=== PATIENT | female | born 1965 | race Caucasian/White ===

== ENCOUNTER 2024-07-25 10:21 | Emergency (ER) | payer OTHER, SELFPAY ==
[2024-07-25 10:24] VITALS: BP 107/71
[2024-07-25 11:41] VITALS: BMI 34.5
[2024-07-25 11:42] VITALS: BP 114/71
--- NOTE | 2024-07-25 11:45 | ED.GENMED ---
History of Present Illness
<Mandi Ng MD, Resident - Last Filed: 07/25/24 14:28>
General
Chief Complaint: Abdominal Symptoms
Source: patient
Exam Limitations: none
Time Seen by Provider: 07/25/24 11:38
History of Present Illness
History of Present Illness:
58-year-old female with remote history of ovarian cancer who presents to the ED with intermittent diarrhea and vomiting x2 days. Liquid stool every hour. Diarrhea and vomiting began 2 days ago a few hours after dinner with abdominal pain beginning
the day after. Dinner was homemade pasta with cheese steak from a restaurant. While dinner was shared with family, no on else had abdominal symptoms after.
Reports poor oral intake since symptoms again and headache. Denies recent antibiotic exposure, recent travel, fever/chills/sweats, chest pain, palpitations, difficulty swallowing, urinary symptoms, or blood in stool. Has never had a colonoscopy.
Past History
<Mandi Ng MD, Resident - Last Filed: 07/25/24 14:28>
Past History
ED Past Surgical History: Gynecological (oophorectomy, hysterectomy)
Social History
Tobacco: Smoker (0.5 pk a day)
Alcohol: None
Drug: None
Personal:
Living: with family
Family History
Family History: Cancer (ovarian cancer)
Review of Systems
<Mandi Ng MD, Resident - Last Filed: 07/25/24 14:28>
Review of Systems
Constitutional: Denies fever, night sweats or chills
Respiratory: Denies cough or trouble breathing
Cardiac: Denies chest pain, diaphoresis or palpitations
ABD/GI: Reports abdominal pain, nausea and diarrhea; Denies bloody stools or black stools
: Reports no symptoms; Denies dysuria, frequency, difficulty voiding, urgency or bleeding
Phy Exam
<Mandi Ng MD, Resident - Last Filed: 07/25/24 14:28>
Physical Exam
Physical Exam:
General: Appears uncomfortable
Heart: RRR, no murmurs or rubs
lung: Clear to auscultation bilaterally, no wheezing, rales, rhonchi or respiratory distress
Abd: Soft, nontender, nondistended, Hyperactive bowel sounds in all quadrants, mild epigastric tenderness. No rebound or guarding. No CVA tenderness
: no suprapubic tenderness
Course
<Mandi Ng MD, Resident - Last Filed: 07/25/24 14:28>
Orders/Labs/Results
Orders:
Orders
07/25/24 11:42
Electrocardiogram (*1) Urgent
Reason for Study: Abdominal Pain
EKG- Treatment ONCE
07/25/24 11:43
Complete Blood Count/With Diff Urgent
Comprehensive Metabolic Panel Urgent
Lipase Urgent
07/25/24 12:42
0.9% Sodium Chloride 500 ml [Nss] 500 ml IV BOLUS
Ondansetron Injectable [Zofran] 4 mg IV NOW STA
07/25/24 12:43
Add On- LAB Urgent
Tests Added?: magnesium
07/25/24 13:25
Acetaminophen [Tylenol] 500 mg PO NOW STA
07/25/24 14:09
STOOL [C difficile Antigen & Toxins] Urgent
ALYSE Source: Feces/Stool
Specimen Description:
Stool Culture Urgent
ALYSE Source: Feces/Stool
Specimen Description:
Abnormal Lab Results
07/25/24
11:43
Absolute Monos (auto) 1.6 H 10^3/uL
(0.1-0.6)
Lymphocytes % 16.6 L %
(20.5-51.1)
Monocytes % 17.2 H %
(1.7-9.3)
BUN 18 H mg/dl
(7-17)
Creatinine 1.3 H mg/dL
(0.6-1.0)
Glucose 100 H mg/dl
(70-99)
Calcium 10.6 H mg/dl
(8.4-10.2)
07/25/24 11:43
07/25/24 11:43
Vital Signs
Initial and Last Documented VS:
Initial Vital Signs
Temp Pulse Resp BP Pulse Ox
36.9 C 92 17 107/71 96
07/25/24 10:24 07/25/24 10:24 07/25/24 10:24 07/25/24 10:24 07/25/24 10:24
Last Documented Vital Signs
Temp Pulse Resp BP Pulse Ox
36.9 C 92 17 107/71 96
07/25/24 10:24 07/25/24 10:24 07/25/24 10:24 07/25/24 10:24 07/25/24 10:24
<Marcellus De Souza MD - Last Filed: 07/25/24 14:38>
Orders/Labs/Results
Orders:
Orders
07/25/24 11:42
Electrocardiogram (*1) Urgent
Reason for Study: Abdominal Pain
EKG- Treatment ONCE
07/25/24 11:43
Complete Blood Count/With Diff Urgent
Comprehensive Metabolic Panel Urgent
Lipase Urgent
07/25/24 12:42
0.9% Sodium Chloride 500 ml [Nss] 500 ml IV BOLUS
Ondansetron Injectable [Zofran] 4 mg IV NOW STA
07/25/24 12:43
Add On- LAB Urgent
Tests Added?: magnesium
07/25/24 13:25
Acetaminophen [Tylenol] 500 mg PO NOW STA
07/25/24 14:09
STOOL [C difficile Antigen & Toxins] Urgent
ALYSE Source: Feces/Stool
Specimen Description:
Stool Culture Urgent
ALYSE Source: Feces/Stool
Specimen Description:
Abnormal Lab Results
07/25/24
11:43
Absolute Monos (auto) 1.6 H 10^3/uL
(0.1-0.6)
Lymphocytes % 16.6 L %
(20.5-51.1)
Monocytes % 17.2 H %
(1.7-9.3)
BUN 18 H mg/dl
(7-17)
Creatinine 1.3 H mg/dL
(0.6-1.0)
Glucose 100 H mg/dl
(70-99)
Calcium 10.6 H mg/dl
(8.4-10.2)
07/25/24 11:43
07/25/24 11:43
Vital Signs
Initial and Last Documented VS:
Initial Vital Signs
Temp Pulse Resp BP Pulse Ox
36.9 C 92 17 107/71 96
07/25/24 10:24 07/25/24 10:24 07/25/24 10:24 07/25/24 10:24 07/25/24 10:24
Last Documented Vital Signs
Temp Pulse Resp BP Pulse Ox
36.9 C 92 17 107/71 96
07/25/24 10:24 07/25/24 10:24 07/25/24 10:24 07/25/24 10:24 07/25/24 10:24
<Mandi Ng MD, Resident - Last Filed: 07/25/24 14:28>
MDM/Problems Addressed
Differential Diagnosis Includes:
Gastroenteritis, c-diff colitis, parasitosis, constipation
MDM/Problems Addressed:
Presentation is suggestive of gastroenteritis, recent contact with grandchildren who also have GI illness. Unlikely C. diff colitis given absence of risk factors. No recent travel or sick contacts. Relatively benign abdominal exam. Abdominal imaging
not indicated at this time. Lipase is negative for pancreatitis and vitals remain stable. Will give 500ml bolus NS, zofran for nausea, and check magnesium. Will reevaluate shortly.
<Mandi Ng MD, Resident - Last Filed: 07/25/24 14:28>
*Critical Care Note
Total Time (30-74mins, 75-104mins- exclusive of procedures): Not Applicable
ED Attending Note
<Mandi Ng MD, Resident - Last Filed: 07/25/24 14:28>
-
Portions of this chart may have been created with voice recognition software.� Occasional wrong word or��sound alike� substitutions may have occurred due to the inherent limitations of voice recognition software.
<Marcellus De Souza MD - Last Filed: 07/25/24 14:38>
ED Attending Note
Patient seen and examined by attending physician: Yes
I performed a history and physical exam of patient and discussed management with resident, I reviewed resident's note and agree with documented findings and plan of care.: Yes
ED Attending Note:
I have seen and evaluated the patient with a [id number] encounter. I have spoken to the resident and involved in the medical history, the physical exam, medical decision making.
Evaluation and management service: agree unless noted differently below.
Results interpretation: agree unless noted differently below.
Focused HPI: 58-year-old female with history as documented presents to the emergency room for evaluation of nausea, vomiting, diarrhea. Patient reports that she had large bowel movement after dinner on Wednesday evening, had some mild lower abdominal
cramping and began vomiting Wednesday night. She says that Wednesday she vomited throughout the day and was having profuse diarrhea. Vomiting has improved but today continued to have diarrhea and so she came to the ER for evaluation. No blood in
diarrhea or vomitus. She says stools are completely liquid, greater than 10 episodes daily. She says that today she has mild headache. She denies any fevers or chills. She denies any significant abdominal pain�she says only has some mild
cramping with bowel movements. She denies any dysuria, hematuria, change in frequency. Denies any chest pain, shortness of breath, cough, URI symptoms. Prior abdominal hysterectomy, no other surgeries noted. Of note she says that she has been
around her grandchildren who have been dealing with diarrhea.
Physical exam: Awake alert not in distress. Vitals within normal limits. Mucous memories slightly dry. Abdomen soft, nondistended, nontender to deep palpation. Extremities are warm and well-perfused.
Medical Decision Makin-year-old female presents with diarrheal illness; had some nausea and vomiting as well which seems to have improved slightly. Today has mild headache�suspect likely dehydrated. Abdomen nontender not having significant
pain. Clinical picture is consistent with a gastroenteritis. Suspect likely viral gastroenteritis�grandchildren had recent diarrheal illness. We checked labs including a CBC and a CMP which were significant only for a creatinine of 1.3�no
baseline available for comparison but suspect likely mild DANIEL in the setting of dehydration. She was given IV fluids here as well as some Tylenol for headache and some Zofran. No indication for emergent abdominal imaging at this point in time with
reassuring vitals, labs and exam. No additional vomiting here. No clear indication for hospital admission, will discharge with Zofran and Imodium as needed, encouraged p.o. fluids and bland diet. All questions answered.
Discharge Plan
Departure
Patient Disposition: Home (Routine Discharge)
Date of Disposition: 07/25/24
Time of Disposition: 14:22
Patient with high blood pressure during this ER visit?: No
Discharge Problem:
Gastroenteritis, Dehydration, Diarrhea
Instructions: Dehydration, Adult (DC), Warren Diet, Diarrhea, Adult ED
Prescriptions:
New
ondansetron 4 mg tablet,disintegrating
4 mg PO TIDPRN PRN (Reason: nausea/vomiting) Qty: 14 0RF
No Action
venlafaxine 37.5 mg capsule,extended release 24hr
37.5 mg PO DAILY
omeprazole 40 mg capsule,delayed release(DR/EC)
40 mg PO DAILY
famotidine [Pepcid] 20 mg Tablet
20 mg PO DAILY PRN (Reason: heartburn)
prednisone 2.5 mg tablet
2.5 mg PO DAILY
diphenhydramine HCl [Benadryl] 25 mg Capsule
25 - 50 mg PO TID PRN (Reason: itching/hives/allergic reaction)
Patient Comments:
02/07/2023: Pt had an allergic reaction to Nitrofurantion (prescribed 01/22/23), Taking to help with itching & hives.
gabapentin 300 mg capsule
900 mg PO HS
acetaminophen [acetaminophen] 325 mg tablet
650 mg PO Q6HPRN PRN (Reason: mild pain) Qty: 14 0RF
oxycodone 5 mg tablet
5 mg PO Q4HPRN PRN (Reason: breakthrough/severe pain) Qty: 10 0RF
Paxlovid 300 mg (150 mg x 2)-100 mg tablets,dose pack
See Rx Instructions .ROUTE .COMPLEX Qty: 30 0RF
Rx Instructions:
take TWO 150 mg tablets of nirmatrelvir with ONE 100 mg tablet of ritonavir twice daily for 5 days
Referrals:
Prabha Avila DO [Family Provider] - Follow up in 2-3 days
Activity Restrictions/Additional Instructions:
Thank you for visiting the Emergency Department at [facility].
1. Please schedule a follow up appointment as directed. Call first thing tomorrow morning to make an appointment.
2. If indicated, please take your medications as instructed and indicated on discharge paperwork.
3. If any of your symptoms do not improve, or persist, or become more severe within 6-12 hours, please return to the emergency department for further care.
4. Please return to the emergency department if you develop a headache, neck pain/stiffness, fever greater than 100.4F, chest pain, shortness of breath, persistent nausea, vomiting, slurred speech, difficulty walking, numbness/tingling, weakness,
signs of infection or any other symptoms that are worrisome to you.
Please call [phone] if you have any questions.
Interventions
Interventions:
*Risk Screen - Suicide Last Done: 07/25/24 10:26
*General Assessment Last Done: 07/25/24 10:26
*Neglect/Abuse Screening Last Done: 07/25/24 10:26
ED- Fall Risk Assessment Last Done: 07/25/24 11:40
*ED COVID-19 Vaccine History Last Done: 07/25/24 11:40
ML-Bhxukt-Cyjkzcgkjl Assessment Last Done: 07/25/24 11:40
Discharge Date and Time
Print Language: LUXEMBOURGISH
[2024-07-25 11:56] LABS: % Basophils 0.2 % (0-2); % Eosinophils 0.6 % (0-6); % Immature Granulocytes 0.3 % (0-0.5); % Lymphocytes 16.6 % (20.5-51.1); % Monocytes 17.2 % (1.7-9.3); % Neutrophils 65.1 % (42.2-75.2); Absolute Eosinophils 0.1 10^3/uL (0-0.7); Absolute Lymphocytes 1.5 10^3/uL (1.2-3.4); Absolute Monocytes 1.6 10^3/uL (0.1-0.6); Absolute Neutrophils 5.9 10^3/uL (1.4-6.5); Hematocrit 43.9 % (37.0-47.0); Hemoglobin 14.8 g/dL (12.0-16.0); Mean Corp Hgb Conc. 33.7 g/dL (33.0-37.0); Mean Corpuscular Hgb 30.2 pg (27.0-31.0); Mean Corpuscular Volume 89.6 fL (81.0-99.0); Mean Platelet Volume 10.2 fL (7.4-10.4); Nucleated Red Blood Cells % 0 %; Platelet Count 285 10^3/uL (130-400); Red Cell Dist. Width 13.4 % (11.5-14.5)
[2024-07-25 12:00] VITALS: BP 117/69
[2024-07-25 12:12] LABS: ALT (SGPT) 20 U/L (0-35); AST (SGOT) 32 U/L (14-36); Albumin 4.6 g/dl (3.5-5.0); Alkaline Phosphatase 98 U/L (38-126); Blood Urea Nitrogen 18 mg/dl (7-17); Calcium 10.6 mg/dl (8.4-10.2); Carbon Dioxide 25 mmol/L (22-30); Chloride 102 mmol/L (98-107); Estimated Creatinine Clearance 56 ml/min; Glucose 100 mg/dl (70-99); Lipase 57 U/L (23-300); Potassium 4.4 mmol/L (3.5-5.1); Sodium 140 mmol/L (135-145); Total Bilirubin 0.6 mg/dl (0.2-1.3); Total Protein 6.8 g/dl (6.3-8.2); eGFR 47.08
[2024-07-25] MEDS: ZOFRAN 4 MG IV (12:50)
[2024-07-25] MEDS: NSS 500 IV (12:50)
[2024-07-25 13:00] VITALS: BP 119/73
[2024-07-25] MEDS: TYLENOL 500 MG PO (13:45)
[2024-07-25 14:00] VITALS: BP 116/71
== END 2024-07-25 15:10 | disposition home or self-care (01) ==
LOC: EMR 10:21
PROVIDERS: Physician Assistant; EMERGENCY PHYSICIAN Emergency Medicine; FAMILY PHYSICIAN Family Medicine
DX: K52.9 Noninfective gastroenteritis and colitis, unspecified (principal); E86.0 Dehydration; F17.200 Nicotine dependence, unspecified, uncomplicated
CPT/HCPCS: 99284; 96374; 96361; 80053; 83690; 83735; 85025; 93005

== ENCOUNTER 2025-05-04 09:41 | Emergency (ER) | payer OTHER, SELFPAY ==
[2025-05-04 09:44] VITALS: BP 114/59
--- NOTE | 2025-05-04 10:14 | ED.GENMED ---
History of Present Illness
General
Chief Complaint: Cold/Flu/URI Symptoms
Source: patient
Time Seen by Provider: 05/04/25 10:02
History of Present Illness
History of Present Illness:
59-year-old female with past medical history of previous ovarian cancer status post hysterectomy, GERD, remote history of pneumonia presenting to the emergency department for evaluation of cough and flulike symptoms that began Wednesday into Wednesday
including cough productive of a yellowish sputum, nausea, diminished p.o. intake, body aches and generalized fatigue. is also sick with similar symptoms. Patient went to urgent care on Wednesday where she was swabbed for COVID which was
negative and given a prescription for Augmentin and benzonatate however patient states no relief and she feels that the Augmentin is giving her GI upset. No fevers noted during this time, no abdominal pain, urinary symptoms, chest pain, shortness
of breath, palpitations or any other concerns. No medications taken today. Patient denies any recent travel.
Past History
Past History
ED Past Medical History: Cancer, Psychiatric and Other (Fibromyalgia)
ED Past Surgical History: Cholecystectomy and Gynecological (oophorectomy, hysterectomy)
Social History
Tobacco: Smoker (0.5 pk a day)
Alcohol: None
Drug: None
Personal:
Living: with family
Family History
Family History: Cancer (ovarian cancer)
Review of Systems
Review of Systems
All Other Systems: ROS reviewed and negative except as documented in HPI and ROS
Phy Exam
Physical Exam
Physical Exam:
GENERAL: Alert , in no apparent distress, ill-appearing but nontoxic
HEAD: Normocephalic atraumatic
EYE: conjunctiva clear
NECK: Supple
ENT: o/p clr, mmm.
CARDIAC: Regular rate and rhythm
LUNGS: Clear breath sounds bilaterally, no acute respiratory distress, no wheezes/rales/rhonchi
NEUROLOGICAL: Alert and oriented
SKIN: Warm and dry, skin intact.
MUSCULOSKELETAL: well perfused.
PSYCH: Normal and appropriate interaction.
Scores
Heart Failure Risk
Heart Failure Risk Score: Not Applicable
Heart Score for Chest Pain Patients
STEMI patient?: Not applicable
Withdrawal Assessment of Alcohol
Withdrawal Assessment Completed?: Not applicable
Course
Orders/Labs/Results
Orders:
Orders
05/04/25 10:14
0.9% Sodium Chloride 1000 ml [Nss] 1,000 ml IV BOLUS
CR Chest - 2 Views Urgent
Comment:
Reason For Exam: cough, flu like symptoms
05/04/25 10:20
Basic Metabolic Panel Urgent
Complete Blood Count/With Diff Urgent
Influenza A+B Rapid Molecular Urgent
ALYSE Source: Nasal Swab
Specimen Description:
Abnormal Lab Results
05/04/25
10:20
WBC 11.3 H 10^3/uL
(4.8-10.8)
MPV 10.7 H fL
(7.4-10.4)
Abs Immat Gran (auto) 0.1 H 10^3/uL
(0-0.05)
Absolute Neuts (auto) 7.4 H 10^3/uL
(1.4-6.5)
Absolute Monos (auto) 1.4 H 10^3/uL
(0.1-0.6)
Lymphocytes % 18.2 L %
(20.5-51.1)
Monocytes % 12.5 H %
(1.7-9.3)
Chloride 108 H mmol/L
(98-107)
Creatinine 1.1 H mg/dL
(0.6-1.0)
Calcium 10.6 H mg/dl
(8.4-10.2)
05/04/25 10:20
05/04/25 10:20
Vital Signs
Initial and Last Documented VS:
Initial Vital Signs
Temp Pulse Resp BP Pulse Ox
97.5 F 80 22 114/59 95
05/04/25 09:44 05/04/25 09:44 05/04/25 09:44 05/04/25 09:44 05/04/25 09:44
Last Documented Vital Signs
Temp Pulse Resp BP Pulse Ox
97.5 F 115 16 116/75 97
05/04/25 09:44 05/04/25 11:23 05/04/25 11:23 05/04/25 11:23 05/04/25 11:23
MDM/Problems Addressed
Differential Diagnosis Includes:
Flu versus other viral etiology, pneumonia, bronchitis, given the flulike symptoms I have less concern for PE although patient does have a risk factor with remote cancer history and smoking
MDM/Problems Addressed:
59-year-old female presenting to the ER for evaluation of flulike symptoms ongoing since Wednesday night into Wednesday, started on Augmentin and benzonatate but without any relief. Arrives hemodynamically stable and in no acute distress. Lungs clear.
Given her smoking history will obtain chest x-ray. Labs and fluids ordered. Disposition pending.
*Radiology
Radiology exam reviewed: preliminary read by ED provider (No acute abnormalities)
*Pulse Oximetry
Patient hypoxic: no
*Critical Care Note
Total Time (30-74mins, 75-104mins- exclusive of procedures): Not Applicable
Data Reviewed
Review of Other/Old Records Reveals: Radiology Studies
Patient Management
Escalation/DeEscalation of care consider admission/obs:
Patient's workup is largely unremarkable. She is otherwise stable for discharge home discussed risk versus benefit of changing antibiotics and at this time patient would like to be off of antibiotics. I will send a prescription for Zofran to her
pharmacy as she has noted some nausea since starting the antibiotic from urgent care. Patient aware of return precautions.
ED Attending Note
-
Portions of this chart may have been created with voice recognition software.� Occasional wrong word or��sound alike� substitutions may have occurred due to the inherent limitations of voice recognition software.
Discharge Plan
Departure
Patient Disposition: Home (Routine Discharge)
Date of Disposition: 05/04/25
Time of Disposition: 13:21
Patient with high blood pressure during this ER visit?: No
Discharge Problem:
Upper respiratory infection
Instructions: Viral Upper Respiratory Infection, Adult (DC)
Prescriptions:
New
ondansetron 4 mg tablet,disintegrating
4 mg PO TIDPRN PRN (Reason: nausea/vomiting) Qty: 10 0RF
No Action
venlafaxine 37.5 mg capsule,extended release 24hr
37.5 mg PO DAILY
omeprazole 40 mg capsule,delayed release(DR/EC)
40 mg PO DAILY
famotidine [Pepcid] 20 mg Tablet
20 mg PO DAILY PRN (Reason: heartburn)
prednisone 2.5 mg tablet
2.5 mg PO DAILY
diphenhydramine HCl [Benadryl] 25 mg Capsule
25 - 50 mg PO TID PRN (Reason: itching/hives/allergic reaction)
Patient Comments:
02/07/2023: Pt had an allergic reaction to Nitrofurantion (prescribed 01/22/23), Taking to help with itching & hives.
gabapentin 300 mg capsule
900 mg PO HS
acetaminophen [acetaminophen] 325 mg tablet
650 mg PO Q6HPRN PRN (Reason: mild pain) Qty: 14 0RF
oxycodone 5 mg tablet
5 mg PO Q4HPRN PRN (Reason: breakthrough/severe pain) Qty: 10 0RF
Paxlovid 300 mg (150 mg x 2)-100 mg tablets,dose pack
See Rx Instructions .ROUTE .COMPLEX Qty: 30 0RF
Rx Instructions:
take TWO 150 mg tablets of nirmatrelvir with ONE 100 mg tablet of ritonavir twice daily for 5 days
ondansetron 4 mg tablet,disintegrating
4 mg PO TIDPRN PRN (Reason: nausea/vomiting) Qty: 14 0RF
Referrals:
Prabha Avila DO [Family Provider, Family Practice]
Interventions
Interventions:
*Risk Screen - Suicide Last Done: 05/04/25 09:44
*General Assessment Last Done: 05/04/25 09:44
*Neglect/Abuse Screening Last Done: 05/04/25 09:44
*ED- Fall Risk Assessment Last Done: 05/04/25 13:35
*ED COVID-19 Vaccine History Last Done: 05/04/25 13:35
*Nursing Disposition Last Done: 05/04/25 13:35
ED- Pulmonary Assessment Last Done: 05/04/25 10:27
Discharge Date and Time
Discharge Date/Time: 05/04/25 13:35
Print Language: AMHARIC
[2025-05-04] MEDS: NSS 1000 IV (10:18)
[2025-05-04 10:35] LABS: % Basophils 0.4 % (0-2); % Eosinophils 2.8 % (0-6); % Immature Granulocytes 0.4 % (0-0.5); % Lymphocytes 18.2 % (20.5-51.1); % Monocytes 12.5 % (1.7-9.3); % Neutrophils 65.7 % (42.2-75.2); Absolute Basophils 0.1 10^3/uL (0-0.2); Absolute Eosinophils 0.3 10^3/uL (0-0.7); Absolute Immature Granulocytes 0.1 10^3/uL (0-0.05); Absolute Lymphocytes 2.1 10^3/uL (1.2-3.4); Absolute Monocytes 1.4 10^3/uL (0.1-0.6); Absolute Neutrophils 7.4 10^3/uL (1.4-6.5); Hematocrit 44.5 % (37.0-47.0); Hemoglobin 14.7 g/dL (12.0-16.0); Mean Corpuscular Hgb 29.5 pg (27.0-31.0); Mean Corpuscular Volume 89.4 fL (81.0-99.0); Mean Platelet Volume 10.7 fL (7.4-10.4); Nucleated Red Blood Cells % 0 %; Platelet Count 291 10^3/uL (130-400); Red Blood Cell Count 4.98 10^6/uL (4.20-5.40); Red Cell Dist. Width 13.2 % (11.5-14.5); White Blood Cell Count 11.3 10^3/uL (4.8-10.8)
[2025-05-04 10:54] LABS: Blood Urea Nitrogen 16 mg/dl (7-17); Calcium 10.6 mg/dl (8.4-10.2); Carbon Dioxide 25 mmol/L (22-30); Chloride 108 mmol/L (98-107); Glucose 97 mg/dl (70-99); Potassium 4.6 mmol/L (3.5-5.1); Sodium 140 mmol/L (135-145); eGFR 57.17
[2025-05-04 11:23] VITALS: BP 116/75
== END 2025-05-04 13:35 | disposition home or self-care (01) ==
LOC: EMR 09:41
PROVIDERS: Physician Assistant Medical; EMERGENCY PHYSICIAN Emergency Medicine; FAMILY PHYSICIAN Family Medicine
DX: J06.9 Acute upper respiratory infection, unspecified (principal); K21.9 Gastro-esophageal reflux disease without esophagitis; M79.7 Fibromyalgia; F17.200 Nicotine dependence, unspecified, uncomplicated; Z85.43 Personal history of malignant neoplasm of ovary; Z87.01 Personal history of pneumonia (recurrent); Z90.49 Acquired absence of other specified parts of digestive tract; Z90.710 Acquired absence of both cervix and uterus; Z90.721 Acquired absence of ovaries, unilateral
CPT/HCPCS: 99283; 96360; 80048; 85025; 87502

== ENCOUNTER 2025-08-19 17:02 | Emergency (ER) | payer OTHER, SELFPAY ==
[2025-08-19 17:03] VITALS: BP 146/84
--- NOTE | 2025-08-19 17:54 | ED.SKININJ ---
HPI-Injury
General
Chief Complaint: Bite
Source: patient
Time Seen by Provider: 08/19/25 17:19
History of Present Illness-Injury
Initial Injury comments:
59-year-old female presenting to the ER for evaluation after she was stung multiple times on the head/neck area, right side of her face noting significant pain, swelling and erythema. She did take 50 mg of Benadryl prior to arrival, contacted her
primary care provider who wanted the patient to come to the ER for further evaluation. Patient states she has been stung before, no history of anaphylaxis. No other concerns presently.
Past History
Past History
ED Past Medical History: Cancer, Psychiatric and Other (Fibromyalgia)
ED Past Surgical History: Cholecystectomy and Gynecological (oophorectomy, hysterectomy)
Social History
Tobacco: Smoker (0.5 pk a day)
Alcohol: None
Drug: None
Personal:
Living: with family
Family History
Family History: Cancer (ovarian cancer)
Review of Systems
Review of Systems
All Other Systems: ROS reviewed and negative except as documented in HPI and ROS
Phy Exam
Physical Exam
Physical Exam:
GENERAL: Alert , in no apparent distress
HEAD: Normocephalic atraumatic
EYE: conjunctiva clear
NECK: Supple,
ENT: o/p clr, mmm. No tonsillar edema, no uvular deviation, no stridor or trismus
CARDIAC: Regular rate and rhythm
LUNGS: Clear breath sounds bilaterally, no acute respiratory distress, no wheezes/rales/rhonchi
NEUROLOGICAL: Alert and oriented
SKIN: Warm and dry, multiple areas of bee stings noted along the right side of the face and neck as well as the outer right ear/helix
MUSCULOSKELETAL: well perfused.
PSYCH: Normal and appropriate interaction.
Scores
Heart Failure Risk
Heart Failure Risk Score: Not Applicable
Heart Score for Chest Pain Patients
STEMI patient?: Not applicable
Withdrawal Assessment of Alcohol
Withdrawal Assessment Completed?: Not applicable
Course
Orders/Labs/Results
Orders:
Orders
08/19/25 17:07
EKG [Electrocardiogram (*1)] Urgent
Reason for Study: Other
Other Reason for Exam: bee stings
EKG- Treatment ONCE
08/19/25 17:31
Famotidine [Pepcid] 20 mg PO NOW STA
Ibuprofen [Motrin] 600 mg PO NOW STA
Prednisone [Deltasone] 50 mg PO NOW STA
Vital Signs
Initial and Last Documented VS:
Initial Vital Signs
Temp Pulse Resp BP Pulse Ox
97.5 F 88 16 146/84 99
08/19/25 17:03 08/19/25 17:03 08/19/25 17:03 08/19/25 17:03 08/19/25 17:03
Last Documented Vital Signs
Temp Pulse Resp BP Pulse Ox
97.5 F 98 18 148/103 98
08/19/25 17:03 08/19/25 18:59 08/19/25 18:59 08/19/25 18:59 08/19/25 18:59
MDM/Problems Addressed
Differential Diagnosis Includes:
Bee sting
Currently no symptoms to suggest anaphylaxis
Currently no concern for cellulitis
MDM/Problems Addressed:
59-year-old female presenting to the ER for evaluation following multiple bee stings to the right side of her face. Patient did take Benadryl prior to arrival but is still noting pain to the area. Will treat with Motrin, prednisone and Pepcid.
Will observe for any further respiratory problems or signs of anaphylaxis.
*Pulse Oximetry
SaO2: 99
Oxygen Mode of Delivery: Room air
Patient hypoxic: no
*Critical Care Note
Total Time (30-74mins, 75-104mins- exclusive of procedures): Not Applicable
Patient Management
Escalation/DeEscalation of care consider admission/obs:
Patient observed and without evidence for anaphylaxis. Will send home with a short-term prescription for prednisone. Continue NSAIDs and ice to the affected areas for pain control. Aware of return precautions to the ER.
ED Attending Note
-
Portions of this chart may have been created with voice recognition software.� Occasional wrong word or��sound alike� substitutions may have occurred due to the inherent limitations of voice recognition software.
Discharge Plan
Departure
Patient Disposition: Home (Routine Discharge)
Date of Disposition: 08/19/25
Time of Disposition: 18:53
Patient with high blood pressure during this ER visit?: No
Discharge Problem:
Bee sting
Instructions: Insect Bites and Stings (DC)
Prescriptions:
New
prednisone 20 mg tablet
40 mg PO DAILY 5 Days Qty: 10 0RF
No Action
venlafaxine 37.5 mg capsule,extended release 24hr
37.5 mg PO DAILY
omeprazole 40 mg capsule,delayed release(DR/EC)
40 mg PO DAILY
famotidine [Pepcid] 20 mg Tablet
20 mg PO DAILY PRN (Reason: heartburn)
prednisone 2.5 mg tablet
2.5 mg PO DAILY
diphenhydramine HCl [Benadryl] 25 mg Capsule
25 - 50 mg PO TID PRN (Reason: itching/hives/allergic reaction)
Patient Comments:
02/07/2023: Pt had an allergic reaction to Nitrofurantion (prescribed 01/22/23), Taking to help with itching & hives.
gabapentin 300 mg capsule
900 mg PO HS
acetaminophen [acetaminophen] 325 mg tablet
650 mg PO Q6HPRN PRN (Reason: mild pain) Qty: 14 0RF
oxycodone 5 mg tablet
5 mg PO Q4HPRN PRN (Reason: breakthrough/severe pain) Qty: 10 0RF
Paxlovid 300 mg (150 mg x 2)-100 mg tablets,dose pack
See Rx Instructions .ROUTE .COMPLEX Qty: 30 0RF
Rx Instructions:
take TWO 150 mg tablets of nirmatrelvir with ONE 100 mg tablet of ritonavir twice daily for 5 days
ondansetron 4 mg tablet,disintegrating
4 mg PO TIDPRN PRN (Reason: nausea/vomiting) Qty: 14 0RF
ondansetron 4 mg tablet,disintegrating
4 mg PO TIDPRN PRN (Reason: nausea/vomiting) Qty: 10 0RF
Referrals:
NONE,* [Family Provider, Internal Medicine]
Interventions
Interventions:
*Risk Screen - Suicide Last Done: 08/19/25 17:03
*General Assessment Last Done: 08/19/25 17:19
*Neglect/Abuse Screening Last Done: 08/19/25 17:03
*ED- Fall Risk Assessment Last Done: 08/19/25 17:19
*ED COVID-19 Vaccine History Last Done: 08/19/25 17:19
*Nursing Disposition Last Done: 08/19/25 19:00
ED-Skin Assessment Last Done: 08/19/25 17:19
Discharge Date and Time
Discharge Date/Time: 08/19/25 19:00
Print Language: OMANI
[2025-08-19] MEDS: MOTRIN 600 MG PO (17:56)
[2025-08-19] MEDS: DELTASONE 50 MG PO (17:56)
[2025-08-19] MEDS: PEPCID 20 MG PO (17:56)
[2025-08-19 18:59] VITALS: BP 148/103
== END 2025-08-19 19:00 | disposition home or self-care (01) ==
LOC: EMR 17:02
PROVIDERS: EMERGENCY PHYSICIAN Emergency Medicine
DX: T63.441A Toxic effect of venom of bees, accidental (unintentional), initial encounter (principal); R22.0 Localized swelling, mass and lump, head; X58.XXXA Exposure to other specified factors, initial encounter; F17.200 Nicotine dependence, unspecified, uncomplicated
CPT/HCPCS: 99283; 93005